=== PATIENT | male | born 1990 | race Caucasian/White ===

== ENCOUNTER 2022-07-09 09:04 | Emergency (ER) | payer MEDICAID, SELFPAY ==
[2022-07-09 09:06] VITALS: BP 180/103; PULSE 118; RESP 19; TEMP 35.7; O2SAT 100; BMI 51.8
--- NOTE | 2022-07-09 09:26 | EDS_ITS ---
HPI History of Present Illness Chief Complaint: Cellulitis Informant: patient Onset/Context/Timing Onset: Month(s) Context: Gradual Onset Timing: Continuous Quality: Burning Location: Bilateral lower legs Worsened by: Movement Relieved by: Nothing Narrative Narrative: Patient presents with pain and swelling in both lower legs that has been getting worse over the past few months. Patient states that he recently noted some redness and burning to his lower legs. Patient states he has chronic wounds on his lower legs. Patient states he recently got poison jo and some of the areas opened up. Patient has been using dressings to the area. Patient denies any fevers or chills. Patient admits to some mild nausea but denies any vomiting. [facility] Medical History (Updated 07/09/22 @ 09:[address] Darvin Lambert DO) Hepatitis C Home Medications buprenorphine HCl 8 mg sublingual tablet ea sublingual 10/17/21 [History Last Taken Unknown] cephalexin 500 mg capsule 500 mg PO Q6 #40 CAPSULES 07/09/22 [Rx Last Taken Unknown] Allergy/AdvReac Type Severity Reaction Status Date / Time No Known Allergies Allergy Unverified 07/09/22 09:05 Family History (Updated 10/17/21 @ 12:52 by Stephanie Viramontes) Grandfather Hypertension Heart disease Brother Hypertension Father Hypertension Surgical History (Updated 07/09/22 @ 09:[address] Darvin Lambert DO) History of appendectomy Hx of tonsillectomy Social History Smoking Status: Current every day smoker alcohol intake: never ROS ROS ED Constitutional Constitutional ED: Denies chills or fever(s) Eyes Eyes: Denies blurry vision or change in vision ENT ENT ED: Denies rhinorrhea or sore throat Cardiovascular Cardiovascular: Denies chest pain or palpitations Respiratory/Chest Respiratory/Chest: Denies cough or dyspnea Gastrointestinal Gastrointestinal: Reports nausea; Denies vomiting Genitourinary Genitourinary ED: Denies dysuria or hematuria Musculoskeletal Musculoskeletal: Reports neck pain; Denies back pain Integumentary Reports rash; Denies abscess Neurologic Neurologic: Denies headache(s) or weakness Allergic/Immunologic Allergic/Immunologic ED: Denies mouth swelling or urticaria EXAM Physical Exam Const Vital Signs: 07/09/22 09:06 Temperature 96.2 F L Temperature Source Temporal Pulse Rate 118 H Respiratory Rate 19 H Blood Pressure 180/103 H Blood Pressure Mean 128 Pulse Ox 100 Oxygen Delivery Method Room Air Positive well nourished, well developed, obese and unkempt General Appearance ED: unkempt, well developed and NAD Nutritional Appearance: obese HEENT Reports moist mucous membranes Neck supple and no JVD Extremity Extremity Narrative: There is some erythema and mild warmth over the lower legs and feet bilaterally. There is no discharge or drainage. There are multiple open ulcerations of the lower legs bilaterally. There is no purulent discharge or drainage. There is good range of motion. Neuro oriented x3, CN's II-XII intact bilaterally and no sensory deficits noted Sensorium / Orientation: alert Motor Exam: strength 5/5 throughout Psych mental status grossly normal Appearance: unkempt MDM MDM MDM Narrative Medical decision making narrative: Patient is afebrile here. Patient has no signs of systemic infection. We will cover the patient with Keflex. Patient was given his first dose here. Patient was instructed to take the antibiotics as prescribed. Patient was instructed to keep the wounds clean. Patient was instructed to follow-up with his primary care physician in 5 to 7 days. Patient understood and was agreeable with the plan. All questions were answered. Discharge Plan Triage Chief Complaint: Cellulitis ED Provider: Darvin Lambert Dx/Rx/DC Orders Clinical Impression: Cellulitis of both lower extremities, Open leg wound Instructions: ED Cellulitis Prescriptions: New cephalexin [cephalexin] 500 mg capsule 500 mg PO Q6 Qty: 40 0RF No Action buprenorphine HCl 8 mg tablet, sublingual sublingual Primary Care Provider: Care Physician,No Primary Referrals: Selin Archibald [NON-STAFF] - 3-5 Days Care Physician,No Primary [Primary Care Provider] - Disposition Disposition: Home, Self Care
[2022-07-09 09:40] VITALS: BP 180/103; PULSE 118; RESP 19; TEMP 35.7; O2SAT 100
[2022-07-09] MEDS: Cephalexin 500 MG Capsule PO (09:43)
== END 2022-07-09 09:45 | disposition home or self-care (01) ==
PROVIDERS: Emergency Provider Emergency Medicine; Visit Provider Emergency Medicine
DX: S81.801A Unspecified open wound, right lower leg, initial encounter (principal); S81.802A Unspecified open wound, left lower leg, initial encounter; L03.116 Cellulitis of left lower limb; L03.115 Cellulitis of right lower limb; F17.200 Nicotine dependence, unspecified, uncomplicated; X58.XXXA Exposure to other specified factors, initial encounter
CPT/HCPCS: 99283